=== PATIENT | female | born 1975 | race Two or more races ===

== ENCOUNTER → 2025-05-26 | Outpatient (CLI) | payer MEDICAID, SELFPAY ==
--- NOTE | 2025-05-26 10:45 | XR_ITS ---
Examination: Breast ultrasound, unilateral, right Date and time of exam: May 26, 2025 1115 hours INDICATIONS: Patient states stabbing right breast pain 14 months Technique: Real-time brewster scale ultrasonographic imaging performed right breast including all 4 quadrants as well as nipple retroareolar and axillary region. Findings: 12:00 cyst 6 x 6 mm 2:00 cyst 4 x 4 millimeter 7:00 nodule circumscribed 10 x 6 mm Dilated retroareolar ducts IMPRESSION: BI-RADS Category 3: Probably benign findings One additional 6 month right breast sonogram follow-up is needed to document stability of 7:00 nodule described above
--- NOTE | 2025-05-26 11:15 | XR_ITS ---
Examination: Diagnostic digital mammography, bilateral Computer aided detection 3-D breast Tomosynthesis, bilateral Date and time of exam: May 26, 2025 1131 hours Compared to mammograms dating to September 06, 2022 INDICATIONS: Stabbing right breast pain and sensation 14 months Technique: Nonmagnified MLO, CC views of the breasts to been obtained, reconstructed from 3-D Tomosynthesis images. R2 computer aided detection program utilized for evaluation of suspicious masses and/or abnormal calcifications. 3-D Tomosynthesis images obtained. Findings: The breasts are heterogeneously dense, which may obscure small masses 4 mm nodule outer right breast partially circumscribed Impression: BI-RADS Category 3: Probably benign findings One additional 6 month right mammogram follow-up is needed Please see the right breast sonogram report today and recommendations.
== END | disposition home or self-care (01) ==
LOC: CDIM 10:48
PROVIDERS: PCP Family Medicine; Referring Provider Family Medicine; Visit Provider Family Medicine
DX: R92.333 Mammographic heterogeneous density, bilateral breasts (principal); N63.13 Unspecified lump in the right breast, lower outer quadrant
CPT/HCPCS: 76641; 77062; 77066; G0279